=== PATIENT | female | born 1980 ===

== ENCOUNTER 2023-08-03 09:58 | Outpatient (REF) | payer OTHER, SELFPAY ==
[2023-08-03 11:11] LABS: MANUAL DIFF FLAG NO
[2023-08-03 11:50] LABS: Basophils Absolute Auto 0.1 X10*3/uL (0.0-0.2); Basophils Percent Auto 0.9 % (0-2); Eosinophils Absolute Auto 0.2 X10*3/uL (0.0-0.4); Hemoglobin 12.3 g/dl (12.0-16.0); Imm Gran Abs Auto 0.03 X10*3/uL (0.00-0.03); Imm Gran Pct Auto 0.3 % (0.0-0.4); Lymphocytes Absolute Auto 2.1 X10*3/uL (1.2-4.9); Lymphocytes Percent Auto 22.7 % (20-40); Mean Corpuscular HGB Conc 32.4 g/dl (31.0-35.0); Mean Corpuscular Hemoglobin 26.6 pg (27.0-33.0); Mean Corpuscular Volume 82.3 fL (80.0-98.0); Mean Platelet Volume 9.2 fL (9.4-12.3); Monocytes Absolute Auto 0.6 X10*3/uL (0.1-1.2); Monocytes Percent Auto 6.8 % (2-11); Neutrophils Absolute Auto 6.2 x10*3/uL (2.0-8.3); Neutrophils Percent Auto 67.3 % (45-73); Platelet Count 397 X10*3/uL (160-400); Red Blood Count 4.62 X10*6/uL (4.20-5.50); Red Cell Distribution Width 13.8 % (11.0-16.0); White Blood Count 9.2 X10*3/uL (4.8-10.8)
[2023-08-03 12:43] LABS: Alanine Aminotransferase 16 U/L (0-31); Albumin Level 4.3 g/dL (3.5-5.0); Alkaline Phosphatase 76 U/L (39-117); Anion Gap 14 (12-20); Aspartate Amino Transferase 11 U/L (5-31); Bilirubin Total 0.4 mg/dL (0.0-1.0); Blood Urea Nitrogen 8 mg/dL (9-16); Calcium 9.2 mg/dL (8.4-10.2); Carbon Dioxide 25 mmol/L (22-29); Chloride 104 mmol/L (96-108); Estimated Glomerular Filt Rate > 60; Glucose Random 92 mg/dL (60-115); Potassium 3.9 mmol/L (3.3-5.1); Sodium 139 mmol/L (135-145); Total Protein 8.1 g/dL (6.5-8.0)
[2023-08-04 22:04] LABS: Transglutaminase IgA <1.0 U/mL
[2023-08-05 22:53] LABS: Endomysial IgA Antibody Negative (Negative)
== END 2023-08-03 09:59 | disposition home or self-care (01) ==
LOC: HO.LAB 09:58
PROVIDERS: PCP Nurse Practitioner Family; Referring Provider Nurse Practitioner Family; Visit Provider Physician Assistant
DX: K58.9 Irritable bowel syndrome, unspecified (principal); K21.9 Gastro-esophageal reflux disease without esophagitis; R19.8 Other specified symptoms and signs involving the digestive system and abdomen
CPT/HCPCS: 36415; 80053; 84443; 85025; 86231; 86364

== ENCOUNTER 2023-08-03 09:58 | Outpatient (AMB) | payer OTHER, SELFPAY ==
--- NOTE | 2023-08-03 10:10 | MHC.OFFVIS ---
Vital Signs 08/03/23 10:13 Height 5 ft 2 in Weight 214 lb BMI 39.1 BP 112/66 Blood Pressure Location Lt brachial Position Sitting Pulse 75 Intake Visit Reasons: upper abdominal discomfort, feeling of fullness Intake Note: Patient new consult for upper abdominal discomfort, feeliing of fullness. Patient cc: abdominal discomfort with bloating and fullness, acid reflex with burning sensation, and between diarrhea and constipation. 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 Accompanied by: Self / Same As Patient Allergies No Known Allergies Allergy (Verified 08/03/23 10:09) Medication List - Last Reviewed 08/03/23 by ABBEY Johnson cetirizine (Zyrtec) 10 mg PO DAILY PRN omeprazole 20 mg PO BID pantoprazole 40 mg PO DAILY PRN 30 days HPI Comments Details: A 43 y/o female with acid reflux- really bad for the past year- taking omeprazole 20 BID-for the past 4 months- She does not know if she has gained weight Early satiety- bloating-not hungry- no N/V- alternating stool patterbn Hpylori- was negative- She had been w/u at - had a colonoscopy a couple years ago- she reports as normal- [facility] Surgical History Hx of cholecystectomy History of appendectomy Family History Father HTN (hypertension) Mother No problems noted. Social History Household Members: Family Alcohol intake: current Alcohol intake frequency: holidays/special occasions only Patient Tobacco Use Status: Never used Tobacco Review of Systems Const All systems reviewed & are unremarkable except as noted in HPI and below Card Denies chest pain and Denies dyspnea Resp Denies dyspnea GI Reports bloating, Denies hematochezia, Denies change in bowel habits and Reports heartburn Physical Exam Vital Signs: Last Vital Signs Pulse 75 08/03/23 10:13 BP 112/66 08/03/23 10:13 BMI result Body Mass Index 39.1 Const General: cooperative, healthy appearing, comfortable and no acute distress Orientation/consciousness: patient oriented x3 Limitations: no limitations Resp Effort & Inspection: normal respiratory effort and able to speak in complete sentences Auscultation: clear to auscultation bilaterally, no rales, no rhonchi and no wheezes Cardio Rate: regular rate Rhythm: regular rhythm Heart sounds: S1 normal heart sound present and S2 normal heart sound present GI Palpation (GI): Soft to palpation and nontender Auscultation: normal bowel sounds Skin General skin exam: no rashes or lesions noted Neuro General: patient oriented x3 Extrem General: Yes full ROM Psych Appearance: grossly normal and well kempt Mental Status: mental status grossly normal Speech and movement: Normal speech and movement present and Clear speech present Affect: normal affect Thought process: Normal thought process present Thought content: Normal thought content present Insight: Good insight present (Psych) Judgement: Good judgement present (Psych) Assessment & Plan Assessment & Plan (1) IBS (irritable bowel syndrome): Code(s): K58.9 - Irritable bowel syndrome without diarrhea Category: Medical (2) Acid reflux: Code(s): K21.9 - Gastro-esophageal reflux disease without esophagitis Category: Medical Plan: Reflux precautions Switch to pantoprazole (3) Change in bowel function: Comment: May be functional Code(s): R19.8 - Other specified symptoms and signs involving the digestive system and abdomen Category: Medical (4) Bloating: Code(s): R14.0 - Abdominal distension (gaseous) Category: Medical Plan: Low FODMAP literature Plan pantoprazole- 40 mg UGIseries labs F/u Low fod map-literature give Orders: Orders FL upper GI small bowel Today K21.9 - Gastro-esophageal reflux disease without esophagitis, K58.9 - Irritable bowel syndrome without diarrhea, R19.8 - Other specified symptoms and signs involving the digestive system and abdomen Endomysial IgA rflx Titer Today K21.9 - Gastro-esophageal reflux disease without esophagitis, K58.9 - Irritable bowel syndrome without diarrhea Thyroid Stimulating Hormone Today R19.8 - Other specified symptoms and signs involving the digestive system and abdomen Transglutaminase IgA Today K21.9 - Gastro-esophageal reflux disease without esophagitis, K58.9 - Irritable bowel syndrome without diarrhea Complete Blood Count Auto Diff Today K21.9 - Gastro-esophageal reflux disease without esophagitis, K58.9 - Irritable bowel syndrome without diarrhea Comprehensive Met. Panel Today K58.9 - Irritable bowel syndrome without diarrhea Medications: New pantoprazole 40 mg PO DAILY PRN 30 tabs 5RF acid reflux 30 days Patient Instructions: pantoprazole- 40 mg UGIseries labs F/u Low fod map-literature given Will see back in follow-up Plan of care dependent on above Call with questions or concerns Coding Level of Care Code New Pt Level 3 (51560) Diagnoses IBS (irritable bowel syndrome) K58.9 Acid reflux K21.9 Change in bowel function R19.8 Bloating R14.0 Time Spent (min) 30
[2023-08-03 10:13] VITALS: BP 112/66; PULSE 75; BMI 39.1
== END 2023-08-03 11:27 | disposition home or self-care (01) ==
PROVIDERS: PCP Nurse Practitioner Family; Referring Provider Nurse Practitioner Family; Visit Provider Physician Assistant
DX: K58.9 Irritable bowel syndrome, unspecified (principal); K21.9 Gastro-esophageal reflux disease without esophagitis; R19.8 Other specified symptoms and signs involving the digestive system and abdomen; R14.0 Abdominal distension (gaseous)
CPT/HCPCS: 99203

== ENCOUNTER 2023-10-05 09:47 | Outpatient (REF) | payer OTHER, SELFPAY ==
--- NOTE | ~2023-10-05 | FL_ITS ---
EXAMINATION: XR FLUOROSCOPY UPPER GI WITH AIR AND SMALL BOWEL SERIES. CLINICAL INFORMATION: Reflux COMPARISON: None TECHNIQUE: Fluoroscopic air contrast upper GI examination was performed utilizing standard techniques with thin and thick barium and effervescent granules. Numerous spot images were obtained. This was followed by small bowel series utilizing overhead radiographs to follow the propagation of contrast through the small bowel to the right colon. Several fluoroscopic spot images were obtained. FINDINGS: UPPER GI SERIES: Dual and single contrast images of the esophagus demonstrate normal caliber, contour, and mucosal pattern. No evidence of stricture, mass, or ulcerations identified. Esophageal peristalsis is mildly disorganized. No evidence of hiatus hernia identified. No significant gastroesophageal reflux was seen during the course of the examination and on reflux views. Surgical clips are present in the right upper quadrant. Dual contrast and single contrast images of the stomach demonstrated a normal contour. The gastric rugal folds have a mildly thickened appearance. No masses or ulcerations are seen. Contrast freely passed into the gastric antrum and duodenal bulb without delay. Single and air-contrast images of the duodenal bulb demonstrate no abnormality. The duodenal sweep has a normal appearance, course, and mucosal fold appearance. SMALL BOWEL SERIES: Offshore Diver view demonstrates normal/nonspecific bowel gas pattern. There are cholecystectomy clips present. No bony abnormalities aside from mild degenerative hip joint changes bilaterally. SI joints appear normal. Imaged lung bases clear. No abnormal calcifications or organomegaly. The imaged small bowel has a normal fold pattern and caliber. There are no dilated loops, strictures, or masses present. Within the most terminal ileum leading into the ileocecal valve, there is mild narrowing and mucosal irregularity suggesting possible inflammation in this region (DX series 1-10, image 1; RF 1-4, images 8 and 9). Contrast observed in the right colon after 2 hours. FLUOROSCOPY TIME: 3 minutes 18 seconds Number of Spot Images: 9 Number of Cine: 13 DOSE AREA PRODUCT: 2336 uGy-m2 (microgray-meter squared) FL/FL upper GI small bowel IMPRESSION: 1. Mildly disorganized esophageal peristalsis 2. Mildly thickened gastric rugal folds that suggests gastritis. 3. Small bowel series demonstrating short segment irregularity of the most terminal ileum into the ileocecal valve. Findings suggest inflammation. Cannot exclude Crohn's disease. Consider correlating with colonoscopy and retroflexing into the terminal ileum. 4. Small bowel series is otherwise normal. Contrast is seen in the right colon after 2 hours. This procedure was performed by Cristiano Yi PA-C, and supervised by Dr. Boyer
== END 2023-10-05 09:48 | disposition home or self-care (01) ==
LOC: HO.XRAY 09:47
PROVIDERS: PCP Nurse Practitioner Family; Visit Provider Physician Assistant
DX: K58.9 Irritable bowel syndrome, unspecified (principal); R19.8 Other specified symptoms and signs involving the digestive system and abdomen; K21.9 Gastro-esophageal reflux disease without esophagitis
CPT/HCPCS: 74240; 74248

== ENCOUNTER → 2023-10-05 09:53 | Outpatient (BNV) | payer OTHER, SELFPAY | PROVIDERS: PCP Nurse Practitioner Family; Visit Provider Physician Assistant Surgical | DX: K21.9 Gastro-esophageal reflux disease without esophagitis (principal) | CPT/HCPCS: 74246 ==

== ENCOUNTER 2024-03-23 14:57 | Outpatient (REF) | payer OTHER, SELFPAY ==
[2024-03-25 08:44] LABS: H Pylori Breath Test Negative (Negative)
== END 2024-03-23 14:58 | disposition home or self-care (01) ==
LOC: HO.LNP 14:57
PROVIDERS: Visit Provider Nurse Practitioner Family
DX: K21.9 Gastro-esophageal reflux disease without esophagitis (principal)
CPT/HCPCS: 83013

== ENCOUNTER 2024-03-23 15:28 | Outpatient (AMB) | payer OTHER, SELFPAY ==
--- NOTE | 2024-03-23 15:38 | AM.OFFVISNUR ---
Intake Visit Reasons: Nurse Visit Allergies No Known Allergies Allergy (Verified 03/22/24 16:12) Nursing Note Patient presents for collection of?H?Pylori?breath test. Patient has been fasting for 1 hour (nothing to eat, drink, no chewing gum or smoking) has not taken any antacid medication for at least 2 weeks and has no allergies to artificial sweeteners.?? Assessment & Plan Assessment & Plan (1) Acid reflux: Code(s): K21.9 - Gastro-esophageal reflux disease without esophagitis Category: Medical (2) Bloating: Code(s): R14.0 - Abdominal distension (gaseous) Category: Medical Plan Patient presents for collection of?H?Pylori?breath test. Patient has been fasting for 1 hour (nothing to eat, drink, no chewing gum or smoking) has not taken any antacid medication for at least 2 weeks and has no allergies to artificial sweeteners.???This test checks for an overgrowth of bacteria in your stomach. We all have bacteria but some may have more than others. It is treatable. if the test comes back negative there is nothing else to do. If the test result is positive we will treat you with 2 antibiotics and a medication to decrease the acid in your stomach (PPI) for 2 weeks. Two weeks after you have completed the treatment we will retest you to make sure the overgrowth has resolved. Patient Instructions: Process for specimen collection and reason for testing was explained to the patient. Specimen collection. Patient instructed to take a deep breath and then exhale into the blue bag, filling it up as much as possible. Patient instructed to drink a mixture of water and the artificial sweetener with a straw. A 15 minute wait period was observed. Patient instructed to take a deep breath and then exhale into the pink bag, filling it up as much as possible.??
== END 2024-03-23 15:53 | disposition home or self-care (01) ==
PROVIDERS: PCP Nurse Practitioner Family; Visit Provider Nurse Practitioner Family
DX: K21.9 Gastro-esophageal reflux disease without esophagitis (principal); R14.0 Abdominal distension (gaseous)

== ENCOUNTER 2024-03-23 15:28 | Outpatient (REF) | payer OTHER, SELFPAY ==
[2024-03-23 17:28] LABS: C Reactive Protein 0.76 mg/dL (< or = 0.50); Lipase 50 U/L (8-78)
[2024-03-23 17:45] LABS: TSH reflex Free T4 2.82 uIU/mL (0.32-4.0)
[2024-03-23 17:59] LABS: Folate 6.6 ng/mL (> or = 4.0); Vitamin B12 782 pg/mL (200-900)
[2024-03-28 14:17] LABS: Vitamin D 25-OH, D2 <4 ng/mL; Vitamin D 25-OH, D3 18 ng/mL; Vitamin D 25-OH, Total 18 ng/mL (30-100)
== END 2024-03-23 15:29 | disposition home or self-care (01) ==
LOC: HO.LAB 15:28
PROVIDERS: PCP Nurse Practitioner Family; Visit Provider Nurse Practitioner Family
DX: E55.9 Vitamin D deficiency, unspecified (principal); K59.00 Constipation, unspecified; R19.7 Diarrhea, unspecified; K58.9 Irritable bowel syndrome, unspecified; R10.9 Unspecified abdominal pain; K21.9 Gastro-esophageal reflux disease without esophagitis; R14.0 Abdominal distension (gaseous)
CPT/HCPCS: 36415; 82306; 82607; 82746; 83690; 84443; 86140; 99211

== ENCOUNTER 2024-05-17 12:13 | Outpatient (REF) | payer OTHER, SELFPAY ==
--- OUTSIDE RECORDS SUMMARY | 2024-05-17 14:37 | XMS_ITS | Data Portability ---
Author Organization [facility] [place] [facility] [address] Address [address] [place] [address] Care Team Providers Care Fruit Distributor Name Role Phone MARIZOL TOVAR Transmission Engineer [phone] Assessment No assessment recorded. Plan of Treatment Reminders Order Date Submit Date Provider Last Modified By Organization Details Last Modified Time Details Appointments None recorded. Lab rapid strep group A, throat 2023 [email or web address] [facility], [address] [place], [address], 4 09:37:35 Referral None recorded. Procedures None recorded. Surgeries None recorded. Imaging None recorded. Medication Orders amoxicillin 875 mg tablet 2023 [id number], [address] [place], [address], 4 09:41:23 Patient TargetsNo targets recorded. Patient Instructions Encounter Date Encounter Id Patient Instructions Last Modified By Organization Details Last Modified Time 02/20/2024 [id number] strep throat: care instructions [email or web address] Not available 02/20/2024 09:41:28 Reason for Referral None Reported. Results Created Date Observation Date Name Description Value Unit Range Abnormal Flag Note LastModifiedBy Organization Detail LastModifiedTime 02/20/2002/20/2024 rapid strep group Anataliia t Unknown Analyte positi ve Not Available [address] [place], [address], 02/20/2024 09:31:39 02/20/20 24 02/20/2024 rapid strep group A, throa t Unknown Analyte yes Not Available [id number] [place] [address], [phone], 02/20/2024 09:31:39 Result Notes None recorded. Problems Name Problem SNOMED Code Status Onset Date Resolution Date Notes Provider Name and Address Organization Details Recorded Time Acid reflux [id number] Active ROSETTE Kemp [facility] 02/20/2024 09:31:11 Problem Notes None recorded. Medical Equipment None Reported. Allergies No known drug allergies Medications Name Sig Start Date Stop Date Status Note LastModified by Organization Details LastModified Time amoxicillin 875 mg tablet Take 1 tablet every 12 hours by oral route for 10 days. active Not Available Not Available Not Avai lable pantoprazole active Not Available Not Available Not Available Vitals Date Recorded Body height Body mass index (BMI) Body weight Oxygen saturation Oxygen saturation in Arterial blood by Pulse oximetry Pain severity - 0-10 verbal numeric rating [Score] - Reported Heart rate Respiratory rate Body temperature Systolic blood pressure Diastolic blood pressure Provider Name and Address Organization Details Last Updated DateTime 160.02 cm 38.4 kg/m2 19500.5 4 g 99 % 99 % 0 86 /min 18 /min 98.2 [degF] 136 mm[Hg] 89 mm[Hg] Maggie White [facility] 09:35:10 Social History Question Answer Notes LastModified by Organizat ion Details LastModified Time Tobacco Smoking Status Never Smoker [facility] 02/20/2024 09:31:19 What Is Your Level Of Alcohol Consumption? None Information not available 02/20/2024 Are You Currently Employed? Yes Information not available 02/20/2024 Have You Had A Flu Shot This Season? N/A Information not available 02/20/2024 What Is Your Relationship Status? Information not available 02/20/2024 Are You Passively Exposed To Smoke? No Information no t available 02/20/2024 Do You Use Any Illicit Or Recreational Drugs? No Information not available 02/20/2024 Have You Recently Traveled Abroad? No Information not available 02/20/2024 Do You Or Have You Ever Used Any Other Forms Of Tobacco Or Nicotine? No Information not available 02/20/2024 Sex: Unknown Functional Status None recorded. Mental Status None recorded. Family History Relationship Description Onset Age of this Age Resolved Age Notes LastModified by Organization Details LastModified Time Father No current problems or disability Not available 02/19 09:31:12 Mother No current problems or disability Not available 02/19 09:31:12 Medical History No medical history recorded. Gynecological History Statement/Question Response Date of LMP 02/20/2024 Is there any chance of ? No LMP Definite Obstetrics History GPAL:G 0 P 0 0 0 0 Past Encounters Encounter ID Performer Location Encounter Start Date Encounter Closed Date Diagnosis/Indication Diagnosis SNOMED-CT Code Diagnosis ICD10 Code Diagnosis Note [id number] [address] [place] [address] 06/12/2018 18:31:20 06/12/2018 19:05:57 [id number] [facility] [address] [place] [address] 07/05/2019 18:28:36 07/05/2019 19:40:35 [id number] [facility] [address] [place] [address] 01/04/2015 18:08:30 01/04/2015 19:03:54 [id number] [place] [id number] [address] [place] [address] 02/20/2024 09:26:46 02/20/2024 09:43:44 Sore throat 126808150 J02.9 Health Concerns Section Related Observation LastModified by Organization Detai ls LastModified Time None Recorded Concern Status LastModified by Organization Details LastModified Time None Recorded Advance Directives Directive None Recorded Payers Encounter Date Sequence Insurance Name Policy Number Policy Tomlin Covered Member ID Tomlin Member ID Guarantor Name 01/04/[address] [place] [address] [id number] Alicia Robert [id number] Alicia Robert 07/05/2019 1 [facility] [id number] Alicia Robert [id number] Alicia Robert 02/20/2024 1 [facility] [id number] Alicia Jakob [id number] Alicia Robert Notes Date Note Type Note Provider Name and Address Organization Details Recorded Time 02/20/2024 text/html Sore throatRepor anne marie bypatient.Location: hroat Severity:moderate Onset/Timin days Associated Symptoms:3 days sore throat, cough x 3 weeks Kody Phelps MD [address] [place], [address], [place] - [facility] 02/20/2024 09:43:13 OBGyn Episode No OBEpisode recorded.
[2024-05-24 20:29] LABS: Calprotectin, Fecal 40 mcg/g
== END 2024-05-17 12:14 | disposition home or self-care (01) ==
LOC: HO.LNP 12:13
PROVIDERS: Visit Provider Nurse Practitioner Family
DX: R19.8 Other specified symptoms and signs involving the digestive system and abdomen (principal)
CPT/HCPCS: 83993

== ENCOUNTER 2024-06-21 08:51 | Outpatient (AMB) | payer OTHER, SELFPAY ==
--- NOTE | 2024-06-21 08:58 | A.OFFVIS_ITS ---
Vital Signs 06/21/24 09:00 Height 5 ft 2 in Weight 209 lb BMI 38.2 BP 126/60 Blood Pressure Location Rt brachial Position Sitting Pulse 82 Pulse Source Pulse Oximeter Pulse Oximetry (%) 95 Oxygen Delivery Method Room Air Intake Visit Reasons: 3 mo f/u GERD, IBS Intake Note: ESTABLISHED PATIENT for mgmt of GERD + IBS. Labs done. Chief Complaint; C/O occasional reflux episodes, however, overall her condition is greatly improved and under fair to good control. No additional concerns or sx to report per pt. 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 Possible inflammatory changes seen in ileum till cecal valve on upper GI series and small-bowel x-ray. Will check CRP and fecal calprotectin. Will also check vitamin B12, folate, vitamin-D as well as thyroid study. Patient reports epigastric pain postprandially and acid reflux, not successful with omeprazole and pantoprazole in the past. Will check H pylori again and treat empirically if positive. Patient also reports left upper quadrant pain will check lipase to rule out chronic pancreatitis. Postprandial loose stools, Citrucel sent to pharmacy. Patient will take Dulcolax 1-2 tablets to help her empty her bowels better. Patient will be started on Nexium daily. Avoid dietary triggers and late night snacking. Staying upright for minimum 3 hours after meals discussed with patient. Patient will return in 3 months, sooner on as needed basis. She is agreeable to this plan and verbalizes understanding of instructions. She was given the opportunity to ask questions and all questions answered. ? Thank you for allowing me to participate in her care Orders Orders TSH reflex Free T4 03/23/24 K59.00 Vitamin B12 and Folate 03/23/24 R19.7 Vitamin D 25-OH (D2 and D3) 03/23/24 E55.9 C Reactive Protein 03/23/24 K58.9 Lipase 03/23/24 R10.9 H Pylori Breath Test 03/24/24 K21.9 Calprotectin, Fecal 01/09/25 R19.8 Medications New methylcellulose (laxative) (Citrucel) take it with full glass of water 500 mg PO DAILY 30 tabs 2RF K59.00 Dulcolax (bisacodyl) (bisacodyl) 10 mg (2 x 5 mg) PO BEDTIME 60 tabs 4RF NS esomeprazole magnesium (Nexium) 40 mg PO DAILY 30 caps 5RF K21.9 esomeprazole magnesium (Nexium) 40 mg PO DAILY 30 caps 5RF K21.9 TODAY'S VISIT: Patient is here today for follow-up and to discuss lab results. He reports to be feeling much better. Continues sleep taking Nexium and her symptoms of acid reflux suppressed. Patient also changed her diet. No longer eating late at night. Eating more vegetables and drinking more water. Patient denies dyspepsia, dysphagia or odynophagia. Denies melena, hematochezia. Moving her bowels better using Dulcolax as needed. Occasional cramping postprandially depending on what she eats. Status post cholecystectomy stressed the diet will affect when eating food high in fat. Patient admits to noticing that. Lab work discussed with patient. Negative H pylori. Low vitamin-D level, patient will get a script for 2000 units daily. Denies any other GI concerning symptoms. [facility] Surgical History Hx of cholecystectomy History of appendectomy Family History Father HTN (hypertension) Mother No problems noted. Social History Household Members: Family Alcohol intake: current Alcohol intake frequency: holidays/special occasions only Patient Tobacco Use Status: Never used Tobacco Review of Systems Const Denies weight gain and Denies weight loss ENT Reports no additional complaints, Denies dysphagia and Denies odynophagia Card Reports no additional complaints Resp Reports no additional complaints GI Reports abdominal pain, Denies belching, Denies melena, Reports bloating, Denies change in bowel habits, Reports constipation, Denies dysphagia, Denies excessive flatus, Denies dyspepsia, Reports heartburn, Denies diarrhea, Reports loose stools, Denies nausea, Denies odynophagia and Denies vomiting Reports no additional complaints Musc Reports no additional complaints Neuro Reports no additional complaints Psych Reports no additional complaints Endo Reports no additional complaints Physical Exam Vital Signs: Last Vital Signs Pulse 82 06/21/24 09:00 BP 126/60 06/21/24 09:00 Pulse Ox 95 06/21/24 09:00 Oxygen Delivery Method Room Air 06/21/24 09:00 BMI result Body Mass Index 38.2 Const General: cooperative, healthy appearing, comfortable and no acute distress Nutritional Appearance: obese Orientation/consciousness: patient oriented x3 Limitations: no limitations Resp Effort & Inspection: normal respiratory effort and able to speak in complete sentences Auscultation: clear to auscultation bilaterally, no rales, no rhonchi and no wheezes Cardio Rhythm: regular rhythm GI Inspection: Yes obesity Palpation (GI): Soft to palpation, nontender and no guarding Auscultation: normal bowel sounds Skin General skin exam: no rashes or lesions noted Neuro General: patient oriented x3 Extrem General: Yes full ROM Psych Appearance: grossly normal and well kempt Affect: normal affect Assessment & Plan Assessment & Plan (1) Change in bowel function: Code(s): R19.8 - Other specified symptoms and signs involving the digestive system and abdomen Category: Medical (2) Bloating: Code(s): R14.0 - Abdominal distension (gaseous) Category: Medical (3) Acid reflux: Code(s): K21.9 - Gastro-esophageal reflux disease without esophagitis Category: Medical Qualifiers: Esophagitis presence: esophagitis presence not specified Qualified Code(s): K21.9 - Gastro-esophageal reflux disease without esophagitis (4) Hx of cholecystectomy: Code(s): Z90.49 - Acquired absence of other specified parts of digestive tract Category: Surgical (5) Postprandial diarrhea: Code(s): K52.9 - Noninfective gastroenteritis and colitis, unspecified (6) Constipation: Code(s): K59.00 - Constipation, unspecified Qualifiers: Constipation type: slow transit constipation Qualified Code(s): K59.01 - Slow transit constipation Plan Continue Nexium daily. Avoid dietary triggers in late night snacking. Staying upright for minimal 3 hours after meals discussed with patient. Start vitamin- D. Patient can use Dulcolax as needed. Increase fluid intake and activity to promote better bowel motility. Patient will follow-up in our office in 1 year. Patient was however instructed to call us if she will have any GI concerning symptoms. She is agreeable to this plan and verbalizes understanding of instructions. She was given the opportunity to ask questions and all questions answered. Thank you for allowing me to participate in her care Medications: New cholecalciferol (vitamin D3) 50 mcg PO DAILY 90 tabs 5RF Refilled esomeprazole magnesium (Nexium) 40 mg PO DAILY 90 caps 5RF K21.9 - Gastro- esophageal reflux disease without esophagitis Coding Level of Care Code Est Pt Level 4 (46038) Complex EM visit Add On G2211 Diagnoses Change in bowel function R19.8 Bloating R14.0 Gastroesophageal reflux disease, unspecified whether esophagitis present K21.9 Esophagitis presence: esophagitis presence not specified Hx of cholecystectomy Z90.49 Postprandial diarrhea K52.9 Slow transit constipation K59.01 Constipation type: slow transit constipation Time Spent (min) 35 Comment 25 minutes spent with patient and additional 10 minutes spent reviewing her records
[2024-06-21 09:00] VITALS: BP 126/60; PULSE 82; O2SAT 95; BMI 38.2
== END 2024-06-21 09:41 | disposition home or self-care (01) ==
LOC: HO.HGI 08:52
PROVIDERS: PCP Nurse Practitioner Family; Visit Provider Nurse Practitioner Family
DX: R19.8 Other specified symptoms and signs involving the digestive system and abdomen (principal); R14.0 Abdominal distension (gaseous); K21.9 Gastro-esophageal reflux disease without esophagitis; Z90.49 Acquired absence of other specified parts of digestive tract; K52.9 Noninfective gastroenteritis and colitis, unspecified; K59.01 Slow transit constipation
CPT/HCPCS: 99214

== ENCOUNTER → 2024-06-21 08:51 | Outpatient (BNVA) | payer OTHER, SELFPAY | PROVIDERS: PCP Nurse Practitioner Family; Visit Provider Nurse Practitioner Family ==